=== PATIENT | male | born 1950 | race Caucasian/White ===

== ENCOUNTER 2020-12-28 20:19 | Emergency (ER) | payer MEDICARE, OTHER ==
[~2020-12-28] VITALS: Ht 177.8 cm; Wt 86.2 kg
--- NOTE | 2020-12-28 20:35 | NUR ---
BIBSFAMILY FROM HOME TO ER BED 4. AAOX4. NOT IN RESP DISTRESS. AMBULATORY. BROUGHT IN FOR LOWER ABD PAIN SATRTED YESTERDAY AND GOT WORST IN THE PAST 4 HRS. PT DOES REPORT ASSOCIATED NAUSEA W/ VOMMITITNG. PAIN IS RATE 9/10 [place] CRAMPING. AWAITING MD FOR EVAL. URINE WAS COLLECTED AND SENT TO LAB
[2020-12-28] MEDS ORDERED: ONDANSETRON HCL/PF 4 MG/2 ML VIAL ONE (20:54)
[2020-12-28] MEDS ORDERED: MORPHINE SULFATE INJ 4 MG/ML DISP.SYRIN ONE (20:55)
[2020-12-28] MEDS ORDERED: IV NS 0.9% 1,000 ML BAG IV ONE (21:00)
[2020-12-28] MEDS ORDERED: MORPHINE SULFATE INJ 2 MG/ML DISP.SYRIN IV ONE (21:00)
[2020-12-28] MEDS ORDERED: ONDANSETRON HCL/PF 4 MG/2 ML VIAL IVP ONE (21:00)
[2020-12-28 21:12] LABS: BASOPHILS # (AUTO) 0.1 K/uL (0.0-0.2); BASOPHILS % (AUTO) 0.5 % (0.0-2.0); EOSINOPHILS % (AUTO) 1.3 % (0.0-6.0); HEMATOCRIT 46 % (39-51); HEMOGLOBIN 15.4 g/dL (13.5-17.5); LYMPHOCYTES # (AUTO) 1.8 K/uL (0.8-4.8); LYMPHOCYTES % (AUTO) 18.4 % (20.0-44.0); MEAN CORPUSCULAR HGB CONC 34 g/dl (31.0-36.0); MEAN CORPUSCULAR VOLUME 90 fL (80-96); MONOCYTES # (AUTO) 0.7 K/uL (0.1-1.30); MONOCYTES % (AUTO) 7.3 % (2.0-12.0); NEUTROPHILS # (AUTO) 6.9 K/uL (1.8-8.9); NEUTROPHILS % (AUTO) 72.5 % (43.0-81.0); PLATELET COUNT (AUTO) 175 K/uL (150-450); RED BLOOD CELL COUNT(AUTO) 5.05 MIL/uL (4.5-6.0); WHITE BLOOD COUNT (AUTO) 9.5 K/uL (4.3-11.0)
[2020-12-28 21:15] LABS: BILIRUBIN,URINE NEGATIVE (NEGATIVE); COLOR,URINE YELLOW (YELLOW); LEUKOCYTE ESTERASE ,URINE NEGATIVE (NEGATIVE); NITRITE, URINE NEGATIVE (NEGATIVE); PROTEIN,URINE 100 mg/dl (NEGATIVE); UGLUCOSE NEGATIVE (NEGATIVE); UROBILINOGEN,URINE 0.2 EU/dL (0.2)
[2020-12-28 21:20] LABS: BACTERIA,URINE RARE /HPF (None Seen); SQUAMOUS EPITHELIAL CELL,UR 0-2 /HPF (None Seen); YEAST,URINE Few /HPF (None Seen)
[2020-12-28 21:22] LABS: CALCIUM, SERUM 8.4 mg/dL (8.5-10.1); CARBON DIOXIDE 24 mmol/L (21-32); CHLORIDE 104 mmol/L (98-107); CREATININE 2.3 mg/dL (0.6-1.3); GLUCOSE 160 mg/dL (74-106); POTASSIUM 3.2 mmol/L (3.5-5.1); SODIUM SERUM 142 mmol/L (136-145); UREA NITROGEN, BLOOD 35 mg/dL (7-18)
[2020-12-28] MEDS ORDERED: hydrALAZINE HCL IV 20 MG VIAL ONE (21:26)
[2020-12-28 21:28] LABS: ALANINE AMINOTRANSFERASE 21 U/L (12-78); ALBUMIN 3.6 g/dL (3.4-5.0); ALKALINE PHOSPHATASE 109 U/L (46-116); ASPARTATE AMINOTRANSFERASE 16 U/L (15-37); BILIRUBIN,DIRECT 0.1 mg/dL (0.0-0.2); BILIRUBIN,TOTAL 0.5 mg/dL (0.2-1.0); TOTAL PROTEIN, SERUM 7.1 g/dL (6.4-8.2)
[2020-12-28] MEDS ORDERED: hydrALAZINE HCL IV 20 MG VIAL IV ONE (21:30)
[2020-12-28] MEDS ORDERED: HYDROMORPHONE 1 MG/1 ML DISP.SYRIN IV ONE (21:30)
[2020-12-28] MEDS ORDERED: HYDROMORPHONE 1 MG/1 ML DISP.SYRIN ONE (21:33)
[2020-12-28] MEDS ORDERED: NICARDIPINE IN DEXTROSE,ISO-OS 200 ML IV ONE (21:37)
[2020-12-28] MEDS: NICARDIPINE IN NACL, ISO-OSM 200 ML IV PRN ×2 (21:43→21:55)
--- NOTE | 2020-12-28 21:55 | NUR ---
CARDENE TITRATED TO 7.5MG/HR, BP 152/79
--- NOTE | 2020-12-28 21:59 | NUR ---
[facility] CALLED FOR HIGHER LEVEL OF CARE.
--- NOTE | 2020-12-28 22:06 | NUR ---
CARDENE TITRATED TO 8.5MG/HR,
--- NOTE | 2020-12-28 22:13 | NUR ---
FAXED OVER FACESHEET AND CLINICAL INFO TO [facility]. THEIR FAX NUMBER IS [phone]
--- NOTE | 2020-12-28 22:20 | NUR ---
PT ACCEPTED TO [facility]. CCT ACTIVATED.
--- NOTE | 2020-12-28 22:44 | NUR ---
CALLED 911 FOR RE-TRIAGE, R[address] ON THE WAY
[2020-12-28 22:52] VITALS: BP 135/79
--- NOTE | 2020-12-28 22:52 | NUR ---
RECEIVED CALLBACK FROM JOSIE SHAH AND JUAN M UNABLE TO ACCEPT PATIENT
--- NOTE | 2020-12-28 22:57 | NUR ---
R88 TOOK OVER CARE OF PATIENT, PATIENT LEFT WITH RN ENROUTE TO [facility].
== END 2020-12-28 22:57 | disposition short-term general hospital (02) ==
LOC: ER 20:24
DX: I71.3 Abdominal aortic aneurysm, ruptured (principal); I11.9 Hypertensive heart disease without heart failure; Z95.1 Presence of aortocoronary bypass graft; E87.6 Hypokalemia; N17.9 Acute kidney failure, unspecified; R94.31 Abnormal electrocardiogram [ECG] [EKG]; I25.10 Atherosclerotic heart disease of native coronary artery without angina pectoris
CPT/HCPCS: 36415; 71045; 74176; 80048; 80076; 81001; 84484; 85025; 85610; 87426; 93005; 96361; 96374; 96375; 99291; J0360; J1170; J2270; J2405; J7030; C9803